=== PATIENT | male | born 1950 | race Hispanic/Latino ===

== ENCOUNTER 2017-05-06 16:24 | Emergency (ER) | payer OTHER, MEDICARE, BC ==
[2017-05-06 16:30] VITALS: BMI 28.3
[2017-05-06 16:32] VITALS: TEMP 98
--- NOTE | 2017-05-06 16:46 | ED PDOC ---
Arrival/HPI - General Chief Complaint: Headache Time Seen by Provider: 05/06/17 16:29 Historian: Patient - History of Present Illness Narrative History of Present Illness (Text): 05/06/17 16:42 66 year old male presents to the emergency department with bilateral numbness to the cheeks and posterior headache since about 11:00 this morning. Patient states he did not wake up with the symptoms. He states the numbness is intermittent with each episode lasting about 30-45 minutes. Denies blurry vision. Denies other complaints. Time/Duration: 4-6 hours Symptom Onset: Gradual Symptom Course: Unchanged Associated Symptoms (Text): None Past Medical History - Provider Review Nursing Documentation Reviewed: Yes - Past History Past History: Non-Contributing - Infectious Disease Hx of Infectious Diseases: None - Tetanus Immunization Tetanus Immunization: Unknown - Cardiac Hx Hypertension: Yes Hx Pacemaker: No - Neurological Hx Paralysis: No - Hematological/Oncological Hx Blood Transfusions: No Hx Blood Transfusion Reaction: No - Musculoskeletal/Rheumatological Hx Musculoskeletal Disorders: No - Gastrointestinal Hx Gastroesophageal Reflux: Yes - Psychiatric Hx Emotional Abuse: No Hx Physical Abuse: No Hx Substance Use: No - Past Surgical History Past Surgical History: No Previous - Surgical History Other/Comment: Right knee meniscis sx - Anesthesia Hx Anesthesia Reactions: No Hx Malignant Hyperthermia: No - Suicidal Assessment Feels Threatened In Home Enviroment: No Family/Social History - Physician Review Nursing Documentation Reviewed: Yes Family/Social History: Unknown Family HX Smoking Status: Light Smoker < 10 Cigarettes Daily Hx Alcohol Use: Yes (WEEKENDS) Hx Substance Use: No Hx Substance Use Treatment: No Allergies/Home Meds Allergies/Adverse Reactions: Allergies Penicillins Allergy (Severe, Verified 05/06/17 16:30) SHORTNESS OF BREATH Home Medications: Home Meds Medication Instructions Recorded Confirmed Atorvastatin [Lipitor] 10 mg PO DAILY 11/12/15 05/06/17 Lisinopril [Zestril] 5 mg PO QAM 02/17/16 05/06/17 Cyanocobalamin [Vitamin B12 1000 1,000 mcg PO DAILY 09/09/16 05/06/17 mcg Tab] Ranitidine HCl [Zantac] 150 mg PO BID 09/09/16 05/06/17 Review of Systems - Physician Review All systems were reviewed & negative as marked: Yes Physical Exam - Physical Exam Narrative Physical Exam (Text): - Review of Systems Constitutional: Normal. absent: Fatigue, Weight Change, Fevers Eyes: Normal ENT: Normal Respiratory: Normal absent: SOB, Cough, Sputum Cardiovascular: Normal absent: Chest pain, Palpitations, Syncope Gastrointestinal: Normal absent: Abdominal pain, Diarrhea, Nausea, Vomiting Genitourinary: Normal. absent: Dysuria, Frequency, Hematuria Musculoskeletal: Normal. absent: Arthralgias, Back Pain, Neck Pain Skin: Normal Neurological: Headache, Bilateral cheek numbness absent: Focal Weakness Endocrine: Normal Hemo/Lymphatic: Normal Psychiatric: Normal - Physical exam Patient appears age appropriate, speaking full sentences without difficulty - Systems Exam Head: Present: Atraumatic, Normocephalic Pupils: Present: PERRL Extraocular Muscles: Present: EOMI Conjunctiva: Present: Normal Mouth: Present: Moist Mucous Membranes Neck: Present: Normal Range of Motion. No: MIDLINE TENDERNESS, Paraspinal Tenderness Respiratory/Chest: Present: Clear to Auscultation, Good Air Exchange. No: Respiratory Distress, Accessory Muscle Use, Tachypneic Cardiovascular: Present: Regular Rate and Rhythm, Normal S1, S2, Peripheral Pulses Present. No: Murmurs Abdomen: Present: Normal Bowel Sounds, No: Tenderness, Peritoneal Signs, Rebound, Guarding, Distention Back: Present: Normal Inspection. No: Midline Tenderness, Paraspinal Tenderness Upper Extremity: Present: Normal Inspection. No: Cyanosis, Edema Lower Extremity: Present: Normal Inspection. No: Edema Neurological: Present: GCS=15, Speech Normal, cranial nerves II through XII fully intact with no cerebellar abnormality, neuro-sensory fully intact. No focal neurological deficits. Skin: Present: Warm, Dry, Normal Color. No: Rashes Lymphatic: Present: OX3, NI, NC Psychiatric: Present: Alert, Oriented x 3, Normal Insight, Normal Concentration Vital Signs Reviewed: Yes Vital Signs Temp Pulse Resp BP Pulse Ox 05/06/17 18:46 59 L 17 133/83 97 05/06/17 18:18 61 17 146/79 97 05/06/17 16:31 98 F 57 L 22 162/95 H 95 Temperature: Afebrile Blood Pressure: Normal Pulse: Bradycardic Respiratory Rate: Normal Appearance: Positive for: Well-Appearing, Non-Toxic, Comfortable Pain Distress: None Mental Status: Positive for: Alert and Oriented X 3 Medical Decision Making ED Course and Treatment: Impression: 66 year old male presents to the emergency department with bilateral numbness to the cheeks and posterior headache since about 11:00 this morning. On physical exam, patient has no acute findings. Plan: -- CT Head, Chest X-ray, EKG -- Labs -- Reassess and disposition Progress Notes: 05/06/17 16:48 Patient denies any pain medication at this time. EKG shows sinus bradycardia at [address]-segment elevations, normal intervals. Interpreted by me. Chest x-ray read by me shows no pneumothorax, no pneumonia, no cardiomegaly, no infiltrates. 05/06/17 18:34 glucose 45. pt states he has been prepping for colonoscopy and has not eaten all day On reevaluation, after glucose administered, patient's symptoms fully resolved. Denies any complaints at this time. 05/06/17 18:56 no focal neurological deficits on reexamination pt asking to be dc'd home based on hx and PE, no suspicion for CVA/TIA states she will obtain neurology f/u Pt states he understands to return to the ER right away for new or worsening symptoms or for inability to f/u with PMD or specialist as instructed. Patient states that he fully agrees with and understands discharge instructions. States that he agrees with the plan and disposition. Verbalized and repeated discharge instructions and plan. I have given the patient opportunity to ask any additional questions. - Lab Interpretations Lab Results: 05/06/17 16:55 05/06/17 16:55 Lab Results 05/06/17 17:15: Urine Color Yellow, Urine Appearance Clear, Urine pH 7.0, Ur Specific [place] 1.010, Urine Protein Negative, Urine Glucose (UA) >=1000, Urine Ketones Negative, Urine Blood Negative, Urine Nitrate Negative, Urine Bilirubin Negative, Urine Urobilinogen 0.2, Ur Leukocyte Esterase Negative 05/06/17 16:55: Sodium 137, Potassium 4.6, Chloride 100, Carbon Dioxide 28, Anion Gap 14, BUN 10, Creatinine 0.8, Est GFR ( Amer) > 60, Est GFR (Non- Af Amer) > 60, Random Glucose 89, Calcium 9.9, Total Bilirubin 0.9, AST 35, ALT 38, Alkaline Phosphatase 61, Total Protein 8.1, Albumin 4.6, Globulin 3.4, Albumin/Globulin Ratio 1.4, Triglycerides 211 H, Cholesterol 198, LDL Cholesterol Direct 134 H, HDL Cholesterol 46 05/06/17 16:55: PT 11.2, INR 1.04, APTT 27.8 05/06/17 16:55: WBC 9.3, RBC 5.07, Hgb 16.1, Hct 46.0, MCV 90.7, MCH 31.8, MCHC 35.0, RDW 12.3, Plt Count 238, MPV 9.2, Gran % 55.9, Lymph % (Auto) 29.4, [place] % (Auto) 11.2 H, Eos % (Auto) 3.1, Baso % (Auto) 0.4, Gran # 5.19, Lymph # 2.7, [place] # 1.0 H, Eos # 0.3, Baso # 0.04 - RAD Interpretation Radiology Orders: 05/06/17 16:40 CHEST PORTABLE [RAD] Stat 05/06/17 16:41 HEAD W/O CONTRAST [CT] Stat - EKG Interpretation Interpreted by ED Physician: Yes Type: 12 lead EKG - Medication Orders Current Medication Orders: Discontinued Medications Dextrose (Dextrose 50% Inj) 100 ml IVP STAT STA Stop: 05/06/17 16:56 Last Admin: 05/06/17 17:02 Dose: 100 ml Dextrose (Dextrose 50% Inj) Confirm Administered Dose 50 ml .ROUTE .STK-MED ONE Stop: 05/06/17 16:59 Last Admin: 05/06/17 17:02 Dose: Dextrose (Dextrose 50% Inj) Confirm Administered Dose 50 ml .ROUTE .STK-MED ONE Stop: 05/06/17 17:00 Last Admin: 05/06/17 17:02 Dose: - Scribe Statement The provider has reviewed the documentation as recorded by the Magdiel Lopez Provider Scribe Attestation: All medical record entries made by the Magdiel were at my direction and personally dictated by me. I have reviewed the chart and agree that the record accurately reflects my personal performance of the history, physical exam, medical decision making, and the department course for this patient. I have also personally directed, reviewed, and agree with the discharge instructions and disposition. Disposition/Present on Arrival - Present on Arrival Any Indicators Present on Arrival: No History of DVT/PE: No History of Uncontrolled Diabetes: No Urinary Catheter: No History of Decub. Ulcer: No History Surgical Site Infection Following: None - Disposition Have Diagnosis and Disposition been Completed?: Yes Diagnosis: Paresthesia Disposition: HOME/ ROUTINE Disposition Time: 18:58 Patient Plan: Discharge Condition: GOOD Discharge Instructions (ExitCare): Non-diabetic Hypoglycemia (ED), Paresthesia (ED) Additional Instructions: PLEASE RETURN TO THE EMERGENCY DEPARTMENT FOR NEW OR WORSENING SYMPTOMS. RETURN RIGHT AWAY IF YOU CANNOT FOLLOW UP WITH YOUR PRIMARY CARE DOCTOR, CLINIC, OR SPECIALIST IN 1-2 DAYS. Referrals: Jf Bonilla MD [Primary Care Provider] - Follow up with primary Dwayne Palmer MD [Staff Provider] - Follow up with primary Mitchell Palmer MD [Staff Provider] - Follow up with primary
[2017-05-06] MEDS ORDERED: Dextrose 50% SYRINGE Inj (50 ml) IVP STA (16:55)
[2017-05-06 16:57] LABS: ADD MANUAL DIFF? NO
[2017-05-06] MEDS ORDERED: Dextrose 50% SYRINGE Inj (50 ml) ONE ×2 (16:58→16:59)
[2017-05-06 17:04] LABS: BASO # 0.04 K/mm3 (0.0-2.0); BASO % 0.4 % (0.0-3.0); EOS # 0.3 (0.0-0.7); EOS % 3.1 % (1.5-5.0); GRAN # 5.19 (1.4-6.5); GRAN % 55.9 % (50.0-68.0); LYMPH # 2.7 (1.2-3.4); LYMPH % 29.4 % (22.0-35.0); MEAN CELL VOLUME 90.7 fL (80.0-105.0); MEAN CORPUSCULAR HEMOGLOBIN 31.8 pg (25.0-35.0); MEAN PLATELET VOLUME 9.2 fl (7.0-11.0); MONO % 11.2 % (1.0-6.0); PLATELET COUNT 238 10^3/uL (120.0-450.0); RED CELL DISTRIBUTION WIDTH 12.3 % (11.5-14.5); WHITE BLOOD COUNT 9.3 10^3/ul (4.5-11.0)
[2017-05-06 17:11] LABS: ALB/GLOB RATIO 1.4 (1.1-1.8); ALKALINE PHOSPHATASE 61 U/L (38-133); ALT/SGPT 38 U/L (7-56); AST/SGOT 35 U/L (15-59); BILIRUBIN,TOTAL 0.9 mg/dL (0.2-1.3); BLOOD UREA NITROGEN 10 mg/dL (7-21); CALCIUM 9.9 mg/dL (8.4-10.5); CARBON DIOXIDE 28 mmol/L (21-33); CHLORIDE 100 mmol/L (98-107); CHOLESTEROL 198 mg/dL (130-200); GFR AFRICAN-AMERICAN > 60; GLUCOSE,RANDOM 89 mg/dL (70-110); POTASSIUM 4.6 mmol/L (3.6-5.0); SODIUM 137 mmol/L (132-148); TOTAL PROTEIN 8.1 g/dL (5.8-8.3)
[2017-05-06 17:12] LABS: INR 1.04 (0.93-1.08); PARTIAL THROMBOPLASTIN TIME 27.8 Seconds (23.7-30.8)
[2017-05-06 17:54] LABS: URINE BILIRUBIN NEGATIVE (NEGATIVE); URINE BLOOD NEGATIVE (NEGATIVE); URINE GLUCOSE (UA) >=1000 mg/dL (NEGATIVE); URINE KETONE NEGATIVE (NEGATIVE); URINE LEUKOCYTE ESTERASE NEGATIVE Leu/uL (NEGATIVE); URINE PROTEIN NEGATIVE mg/dL (<30 mg/dL); URINE UROBILINOGEN 0.2 E.U./dL (<1 E.U./dL)
[2017-05-06 17:56] LABS: URINE APPEARANCE CLEAR (CLEAR); URINE COLOR YELLOW (YELLOW)
--- NOTE | 2017-05-06 18:15 | CT ---
PROCEDURE: CT HEAD WITHOUT CONTRAST. HISTORY: b/l cheek numbness COMPARISON: None available. TECHNIQUE: Axial computed tomography images were obtained through the head/brain without intravenous contrast. Radiation dose: Total exam DLP = 774.23 MGy-cm. This CT exam was performed using one or more of the following dose reduction techniques: Automated exposure control, adjustment of the mA and/or kV according to patient size, and/or use of iterative reconstruction technique. FINDINGS: HEMORRHAGE: No intracranial hemorrhage. BRAIN: No mass effect or edema. Intracranial vascular calcifications. The [place]-white matter differentiation appears intact.Please note that MRI with diffusion imaging is more sensitive in the detection of acute ischemic event. VENTRICLES: No hydrocephalus. CALVARIUM: Unremarkable. PARANASAL SINUSES: Unremarkable as visualized. No significant inflammatory changes. MASTOID AIR CELLS: Unremarkable as visualized. No inflammatory changes. OTHER FINDINGS: Polypoid densities are noted within the posterior nasal pharyngeal space, partially imaged. Partial opacification of bilateral external auditory canals, likely cerumen. IMPRESSION: No acute intracranial pathology identified. Polypoid soft tissue densities within the posterior nasal pharyngeal space are partially imaged and of unclear significance. Recommend clinical correlation and dedicated cross-sectional imaging or endoscopy if indicated.
[2017-05-06 18:19] VITALS: RESP 17; O2SAT 97
[2017-05-06 18:47] VITALS: BP 133/83; PULSE 59
--- NOTE | 2017-05-07 10:07 | RAD ---
HISTORY: numbness COMPARISON: 11/12/2015 FINDINGS: LUNGS: No active pulmonary disease. PLEURA: No significant pleural effusion identified, no pneumothorax apparent. CARDIOVASCULAR: Normal. OSSEOUS STRUCTURES: No significant abnormalities. VISUALIZED UPPER ABDOMEN: Normal. OTHER FINDINGS: None. IMPRESSION: No active disease.
--- NOTE | 2017-05-08 16:20 | CARD ---
APPROVED REPORT EKG Measurement Heart [id number] AR [id number] <Conclusion> Sinus bradycardia Otherwise normal ECG
== END 2017-05-06 19:11 | disposition home or self-care (01) ==
LOC: ED 16:24
DX: R20.9 Unspecified disturbances of skin sensation (principal); I10 Essential (primary) hypertension; K21.9 Gastro-esophageal reflux disease without esophagitis; Z72.0 Tobacco use